=== PATIENT | male | born 1960 | race Caucasian/White ===

== ENCOUNTER 2018-04-25 12:01 | Outpatient (REF) | payer MEDICAID, SELFPAY ==
[2018-04-26 11:22] LABS: Hepatitis C Ab w Rflx HCV PCR Negative (NEGAT)
== END 2018-04-25 12:02 ==
LOC: NCHCN 12:01
PROVIDERS: PCP Nurse Practitioner Family; Visit Provider Nurse Practitioner Family
DX: R03.0 Elevated blood-pressure reading, without diagnosis of hypertension (principal); F41.9 Anxiety disorder, unspecified; Z00.00 Encounter for general adult medical examination without abnormal findings
CPT/HCPCS: 86803

== ENCOUNTER 2018-05-14 09:47 | Day surgery (SDC) | payer MEDICAID, SELFPAY ==
[2018-05-14 10:12] VITALS: BP 155/99; PULSE 76; RESP 16; TEMP 36.5; O2SAT 98
[2018-05-14] MEDS: Lactated Ringers 1,000 ML 30 ML IV (10:24)
--- NOTE | 2018-05-14 13:40 | W.PM.DSUDISC ---
Discharge Plan Discharge Details Reason For Visit: PERSONAL HX OF COLON POLYPS Attending Provider: Quentin Macedo Primary Care Provider: Verenice Schwab Disposition Patient Disposition: HOME Condition: Good Home Meds and New Rx's Prescriptions: Continue venlafaxine 150 MG capsule,extended release 24hr 150 mg PO DAILY RF: 0 hydroxyzine HCl 25 MG tablet 25 mg PO PRN RF: 0 Discontinued polyethylene glycol 3350 [Miralax] 17 GM powder in packet 17 g PO DAILY Qty: 255 RF: 0 bisacodyl [Dulcolax (bisacodyl)] 5 MG tablet,delayed release (DR/EC) 5 mg PO ONCE Qty: 4 RF: 0 Discharge Instructions Instructions: Colonoscopy (DC) Activity:: Activity as Tolerated Diet:: Normal Diet Discharge Orders Discharge Orders: Discharge Order (Routine); Ordered 05/14/18 Ordered By: Quentin Macedo Discharge Data Discharge Comment: Normal colonoscopy, routine colorectal cancer screening with next colonoscopy in 10 years
--- NOTE | 2018-05-14 13:52 | W.COLOREPORT ---
Date of service: 05/14/18 Time of Service: 13:52 Colonoscopy Report Date of procedure: 05/14/18 Pre-op diagnosis general: Personal history of colon polyps Post-op diagnosis procedure note: other (Normal colon to the cecum) Procedure: Colonoscopy to the cecum Surgeon: Quentin Macedo Anesthesia proc note operative: MAC (Ye Mckeon JORDANA ASA 2, Mallampati class II) Estimated blood loss (mL): 0 Pathology: none sent Complications: None Disposition: same day Indications: 58-year-old gentleman presenting for colorectal cancer screening with a personal history of colon polyps. He has no family history of colorectal cancer. He has been asymptomatic since his last colonoscopy. The procedure was reviewed with him, the risks were discussed, and all his questions were answered to his satisfaction. Consent was obtained to proceed with colonoscopy Prep: Miralax/Dulcolax (Good prep quality) Findings: In examining the colon from cecum to anus, no abnormalities were noted. Procedure Description: The patient was seen in the day surgery waiting area. His identification was confirmed, and procedure check. He was then brought to the procedure room. Monitoring for telemetry, blood pressure, oxygen saturation, and end tidal CO2 monitoring were applied. An appropriate time out was performed to confirm, identification, allergies, medication, procedure, was performed. Sedation was titrated for affect by the GLAUCOMA SPECIALIST; Once adequate sedation was achieved, I performed a inspection of the external perineum, and a digitial rectal examination. No significant external abnormalities were noted. On digital rectal examination, there was no blood, no masses, good rectal tone, and a normal prostate. I advanced the colonoscope from the anus to the cecum under direct visualization. The cecum was identified by the ileal-cecal valve, and the appendiceal orifice. The scope was then withdrawn in circumferential manner from the cecum to the rectum. No abnormalites were noted in the colon. The scope was then withdrawn into the rectum, and retroflexed. No abnormalities were noted of the rectum or anorectal junction. The scope was then withdrawn, terminating the procedure. There were no complications during the procedure, and the patient tolerated the procedure well. He was returned to the day surgery recovery area in good condition. Plan: Will continue with routine screening for colorectal cancer according to current consensus guidelines, which is currently 10 years.
--- NOTE | 2018-05-14 13:59 | COLE_ITS ---
Date of service: 05/14/18 Time of Service: 13:52 Colonoscopy Report Date of procedure: 05/14/18 Pre-op diagnosis general: Personal history of colon polyps Post-op diagnosis procedure note: other (Normal colon to the cecum) Procedure: Colonoscopy to the cecum Surgeon: Quentin Macedo Anesthesia proc note operative: MAC (Ye Mckeon JORDANA ASA 2, Mallampati class II) Estimated blood loss (mL): 0 Pathology: none sent Complications: None Disposition: same day Indications: 58-year-old gentleman presenting for colorectal cancer screening with a personal history of colon polyps. He has no family history of colorectal cancer. He has been asymptomatic since his last colonoscopy. The procedure was reviewed with him, the risks were discussed, and all his questions were answered to his satisfaction. Consent was obtained to proceed with colonoscopy Prep: Miralax/Dulcolax (Good prep quality) Findings: In examining the colon from cecum to anus, no abnormalities were noted. Procedure Description: The patient was seen in the day surgery waiting area. His identification was confirmed, and procedure check. He was then brought to the procedure room. Monitoring for telemetry, blood pressure, oxygen saturation , and end tidal CO2 monitoring were applied. An appropriate time out was performed to confirm, identification, allergies, medication, procedure, was performed. Sedation was titrated for affect by the STRUCTURES ASSEMBLER; Once adequate sedation was achieved, I performed a inspection of the external perineum, and a digitial rectal examination. No significant external abnormalities were noted. On digital rectal examination, there was no blood, no masses, good rectal tone, and a normal prostate. I advanced the colonoscope from the anus to the cecum under direct visualization. The cecum was identified by the ileal-cecal valve, and the appendiceal orifice. The scope was then withdrawn in circumferential manner from the cecum to the rectum. No abnormalites were noted in the colon. The scope was then withdrawn into the rectum, and retroflexed. No abnormalities were noted of the rectum or anorectal junction. The scope was then withdrawn, terminating the procedure. There were no complications during the procedure, and the patient tolerated the procedure well. He was returned to the day surgery recovery area in good condition. Plan: Will continue with routine screening for colorectal cancer according to current consensus guidelines, which is currently 10 years.
[2018-05-14 14:05] VITALS: BP 123/85; PULSE 67; RESP 16; TEMP 36.3; O2SAT 99
== END 2018-05-14 14:35 | disposition home or self-care (01) ==
PROVIDERS: PCP Nurse Practitioner Family; Visit Provider Surgery
PROC: 0DJD8ZZ Inspection of Lower Intestinal Tract, Via Natural or Artificial Opening Endoscopic (ICD-10-PCS; CPT 45378; principal; 2018-05-14 10:30)
DX: Z12.11 Encounter for screening for malignant neoplasm of colon (principal); Z86.010 Personal history of colon polyps
CPT/HCPCS: 45378

== ENCOUNTER 2020-02-11 10:25 | Outpatient (REF) | payer MEDICAID, SELFPAY ==
[2020-02-11 21:53] LABS: Anion Gap 6.5 mmol/L (3-11); BUN 12 mg/dL (7-18); CO2 28.5 mmol/L (21.0-32.0); CREATININE 0.79 mg/dL (0.70-1.30); Calcium 8.7 mg/dL (8.5-10.1); Calculated LDL 131 mg/dL (<100); Chloride 106 mmol/L (98-107); Cholesterol 195 mg/dL (<200); Glucose 85 mg/dL (74-106); HDL Cholesterol 46 mg/dL (40-60); Potassium 4.6 mmol/L (3.5-5.1); Sodium 141 mmol/L (136-145); Triglyceride 93 mg/dL (<150)
[2020-02-13 09:33] LABS: PSA, Screening 0.5 ng/mL (0.0-4.5)
== END 2020-02-11 10:45 ==
LOC: NCHCN 10:25
PROVIDERS: PCP Nurse Practitioner Family; Visit Provider Physician Assistant
DX: Z13.220 Encounter for screening for lipoid disorders (principal); Z13.228 Encounter for screening for other metabolic disorders; Z12.5 Encounter for screening for malignant neoplasm of prostate
CPT/HCPCS: 80048; 80061; 84153